=== PATIENT | male | born 1980 | race Caucasian/White ===

== ENCOUNTER 2022-12-11 04:02 | Emergency (ER) | payer MEDICAID ==
[~2022-12-11] VITALS: Ht 167.6 cm; Wt 105.0 kg
[2022-12-11 04:12] VITALS: BP 173/98; PULSE 116; RESP 18; O2SAT 99
[2022-12-11] MEDS ORDERED: ACETAMINOPHEN 325MG TABLET PO ONE (05:30)
[2022-12-11 05:36] VITALS: TEMP 98.2
[2022-12-11] MEDS ORDERED: OFLO5DRO4 LEFT EAR (05:44)
[2022-12-11] MEDS ORDERED: TOPUD PO (05:44)
== END 2022-12-11 05:55 | disposition home or self-care (01) ==
LOC: ER 04:20
DX: H60.92 Unspecified otitis externa, left ear (principal)
CPT/HCPCS: 99281; 99283